=== PATIENT | female | born 1965 | race African-American/Black ===

== ENCOUNTER → 2018-04-28 | Outpatient (CLI) | payer OTHER ==
--- NOTE | 2018-04-29 08:44 | XCELERA REPORT ---
[address] [address] Lower Extremity Arterial Evaluation Name: ZOFIA VAUGHAN Age: 53 yrs Gender: Female : 1965 Patient Status: Outpatient Patient Location: Study Date: 04/28/2018 11:15 AM Procedure: A color flow and duplex scan of the lower extremity arteries was performed on the right with velocity and waveform anaylsis. Reason For Study: SCLEROSIS OF RLE Ordering Physician: MILE GOMEZ Performed By: Ozzie Lee Measurements and Calculations Right Left ALMOND GRINDER PSV 108.9 cm/sec Prox PFA PSV -87.7 cm/sec Prox SFA PSV 103.7 cm/sec Mid SFA PSV -135.9 cm/sec Dist SFA PSV -63.7 cm/sec Prox Pop A PSV 47.7 cm/sec Dist BROOKE PSV 54.2 cm/sec Dist AQUATIC SCIENTIST PSV 52.2 cm/sec Fitz Pedis PSV -72.9 -62.9 cm/sec Right Side Arterial Evaluation Normal velocity and triphasic waveforms noted from the Common Femoral artery to the infrageniculate vessels. 0 % stenosis noted. Ankle Brachial index not done due to pain. Interpretation Summary No hemodynamically significant lesions in the right lower extremity only, on duplex imaging, at rest. : MILE GOMEZ > Aleksey Ngo
== END ==
LOC: SP 09:55
PROVIDERS: ATTEND Physician Assistant
DX: M79.604 Pain in right leg (principal); R10.31 Right lower quadrant pain; I70.202 Unspecified atherosclerosis of native arteries of extremities, left leg
CPT/HCPCS: 93926

== ENCOUNTER → 2020-03-22 | Outpatient (CLI) | payer BC, OTHER ==
--- NOTE | 2020-03-22 16:31 | RADIOLOGY REPORT (SQ) ---
EXAM DESCRIPTION: L SPINE FLEX/EXT ONLY IMAGES COMPLETED DATE/TIME: 03/22/2020 4:20 pm REASON FOR STUDY: S/P LUMBAR FUSION Z98.1 ARTHRODESIS STATUS COMPARISON: None. NUMBER OF VIEWS: Two view. TECHNIQUE: Lateral views of the lumbar spine with flexion and extension. LIMITATIONS: Metal artifact. FINDINGS: Grade 2 spondylolisthesis L5-S1 status post posterior fusion. This does not change signif icantly with flexion and extension. IMPRESSION: NO INSTABILITY ON FLEXION/EXTENSION. TECHNICAL DOCUMENTATION: JOB ID: [id number] 2010 [email or web address]- All Rights Reserved Reading location - IP/workstation name: [email or web address]
== END ==
LOC: OD 15:39
PROVIDERS: ATTEND Nurse Practitioner Acute Care
DX: M43.17 Spondylolisthesis, lumbosacral region (principal); Z98.1 Arthrodesis status
CPT/HCPCS: 72120

== ENCOUNTER → 2020-07-12 | Outpatient (CLI) | payer BC, OTHER ==
--- NOTE | 2020-07-12 11:21 | RADIOLOGY REPORT (SQ) ---
EXAM DESCRIPTION: CERV SP 4 OR 5 VIEWS IMAGES COMPLETED DATE/TIME: 07/12/2020 10:55 am REASON FOR STUDY: PAIN,DIZZINESS COMPARISON: 07/17/2014 NUMBER OF VIEWS: Five views including obliques. TECHNIQUE: AP, lateral, obliques and odontoid radiographic images acquired of the cervical spine. LIMITATIONS: None. FINDINGS: MINERALIZATION: Normal. ALIGNMENT: Normal. VERTEBRAE: Maintained height. No fracture or worrisome bone lesion. DISCS: Multilevel disc space narrowing with osteophytes. POSTERIOR ELEMENTS: Pedicles and facets are intact. No posterior arch defects. Facet arthropathy is present. FORAMINA: Mildly Narrowed at the left C5-6 and C6-7 levels. HARDWARE: None in the spine. PARASPINAL SOFT TISSUES: Normal. OTHER: No other significant finding. IMPRESSION: SPONDYLOSIS WITHOUT BONE LESION OR FRACTURE. TECHNICAL DOCUMENTATION: JOB ID: [id number] 2010 [employer]- All Rights Reserved Reading location - IP/workstation name: [email or web address]
== END ==
LOC: RAD 10:12
PROVIDERS: ATTEND Obstetrics & Gynecology
DX: M47.812 Spondylosis without myelopathy or radiculopathy, cervical region (principal); R42 Dizziness and giddiness
CPT/HCPCS: 72050

== ENCOUNTER → 2020-08-14 | Outpatient (CLI) | payer BC, OTHER | LOC: OD 16:57 | PROVIDERS: ATTEND Otolaryngology | DX: J30.9 Allergic rhinitis, unspecified (principal) | CPT/HCPCS: 36415; 82785; 86003 ==

== ENCOUNTER → 2020-10-25 | Outpatient (CLI) | payer BC, OTHER ==
--- NOTE | 2020-10-26 13:01 | RADIOLOGY REPORT (SQ) ---
EXAM DESCRIPTION: U/S THYROID/SFT TISS HD NECK IMAGES COMPLETED DATE/TIME: 10/25/2020 5:27 pm REASON FOR STUDY: (E07.89)OTHER SPECIFIED DISORDERS OF THYROID E07.89 OTHER SPECIFIED DISORDERS OF THYROID COMPARISON: None. TECHNIQUE: Dynamic and static dodson-scale images acquired of the thyroid gland. Selected additional c olor/power Doppler images recorded. All images stored to PACS. LIMITATIONS: None. FINDINGS: RIGHT LOBE: Normal size. Homogeneous echotexture. No cystic or solid masses. LEFT LOBE: Normal size. Homogeneous echotexture. Small 3 mm cyst. No solid masses. ISTHMUS: Normal size. Homogeneous echotexture. Solid mass on the right side of the isthmus, measuri ng 0.8 x 1.1 cm. Circumscribed, generally hypoechoic. Oriented wider than tall. No calcifications. OTHER: No other significant finding. IMPRESSION: 1.1 CM SOLID NODULE ON THE RIGHT SIDE OF THE ISTHMUS. TIRADS 4. RECOMMEND FOLLOW-UP ULTRASOUND IN 1 YEAR. COMMENT: The [employer] ([employer]) Thyroid Imaging Reporting And Data System (TI-RADS ) is an ultrasound feature based summed scoring system of risk categorization and management recommen dations for thyroid nodules. TI-RADS assessment categories are as follows: 0 - Incomplete exam: Additional imaging or comparison to prior examinations recommended. 1. - Benign: Fine-needle aspiration or follow-up not routinely recommended in the absence of clinical change. 2. - Not suspicious: Fine-needle aspiration or follow-up not routinely recommended in the absence of clinical change. 3. - Mildly suspicious: Fine-needle aspiration recommended if greater than or equal to 2.5 cm in size . Ultrasound follow-up recommended if greater than or equal to 1.5 cm in size. Follow-up at 1, 3, and 5 years. 4. - Moderately suspicious: Fine-needle aspiration recommended if greater than or equal to 1.5 cm in size. Ultrasound follow-up recommended if greater than or equal to 1.0 cm in size. Follow-up at 1, 2, 3, and 5 years. 5. - Highly suspicious: Fine-needle aspiration recommended if greater than or equal to 1.0 cm in size . Ultrasound follow-up recommended if greater than or equal to 0.5 cm in size. Follow-up at 1, 2, 3, and 5 years. TECHNICAL DOCUMENTATION: JOB ID: [id number] 2010 [employer]- All Rights Reserved Reading location - IP/workstation name: [email or web address]
== END ==
LOC: RAD 17:04
PROVIDERS: ATTEND Otolaryngology
DX: E04.1 Nontoxic single thyroid nodule (principal); E07.89 Other specified disorders of thyroid
CPT/HCPCS: 76536